=== PATIENT | female | born 1975 | race Caucasian/White ===

== ENCOUNTER 2018-06-25 22:59 | Inpatient (IN) | payer MEDICAID ==
[~2018-06-25] VITALS: Ht 175.3 cm; Wt 83.2 kg
--- NOTE | ~2018-06-25 | DS ---
PATIENT:FELICITAS VILLA :77 MEDICAL RECORD: [id number] DISCHARGE SUMMARY ADMISSION DATE: 06/25/18 DISCHARGE DATE: DATE OF ADMISSION: 06/25/2018 DATE OF DISCHARGE: 06/27/2018 ADMISSION DIAGNOSES: 1. Advanced maternal age. 2. Hypertension in , chronic. 3. Limited care in the third trimester. 4. Drug abuse/addiction in the third trimester of . DISCHARGE DIAGNOSES: 1. Advanced maternal age. 2. Hypertension in , chronic. 3. Limited care in the third trimester. 4. Drug abuse/addiction in the third trimester of . 5. Mother delivered at 39 weeks. PROCEDURE: Induction of labor with vaginal delivery. DELIVERY ATTENDANT: Dr. Napoles. DISCHARGING PHYSICIAN: Dr. Jacobo HISTORY OF PRESENT ILLNESS: See the H&P in the chart. SUMMARY OF HOSPITALIZATION: The patient is admitted to the hospital and underwent induction of labor with subsequent delivery. At the time of discharge, the patient is doing well with adequate pain control on NSAIDs and Tylenol. The patient will be discharged home on Mobic. Standard precautions as well as contraception counseling have been given. Follow up in 6 weeks with the delivering physician. TRANSINT:[id number] Voice Confirmation ID: [id number] DOCUMENT ID: [id number] ELIZABETH JACOBO MD at 1321 CC: [id number] DICTATION DATE: 06/27/18917 FILM DEVELOPER: 06/27/18 2340 ADM IN [facility] [address] [place] [address]
--- NOTE | ~2018-06-25 | MORECARE ---
CASE MANAGEMENT DISCHARGE SUMMARY PATIENT: FELICITAS VILLA UNIT: [id number] ADM DATE: 06/25/18 AGE: 43 : [birth year] SEX: F ROOM/BED: D.1276 AUTHOR: KARL,DOC PHYSICIAN: REFERRING PHYSICIAN: JACK OSUNA MD DATE OF SERVICE: 06/27/18 Discharge Plan Patient Name: FELICITAS VILLA Facility: [facility]:[place] : 1975 Planned Disposition: Anticipated Discharge Date: Discharge Date: Expected LOS: Initial Reviewer: [email or web address] Initial Review Date: 06/26/2018 Generated: 06/27/18 6:51 pm Comments DCP- Discharge Planning Updated by [email or web address]: Cady Santacruz on 06/27/18 4:[address] Patient Name: FELICITAS VILLA Admission Status: Elective Accout number: [id number] Admission Date: 06-25-2018 : 1975 Admission Diagnosis: Attending: JACK OSUNA Current LOS: 2 Anticipated DC Date: Planned Disposition: Primary Insurance: MEDICAID [place] PENDING Discharge Planning Comments: DC PLAN: Home w BABY. MOB is FELICITAS VILLA, address [address] [place] [address]. PHONE NUMBER [phone].. DC NEEDS: None TRANSPORTATION: FAMILY AND FRIENDS WIC: NO, STATES DOESN'T NEED INFORMATION. MEDICAID: IS IN THE PROCESS. CAR SEAT: NOT YET BUT GETTING ONE BEFORE DISCHARGE FEEDING PLAN: Plans to breast feed. BABY NAME: HASN'T NAMED YET FOB: States is not in the picture. MOB: WILL BE STAYING AT HOME WITH BABY ANIMATION PRODUCER: SAM CARE: NONE SUPPLIES: MOB states has diapers, bottles, and clothes. WATER SOURCE: city HEAT SOURCE: ELECTRIC AIR CONDITIONING: yes, central air. CM met with MOB regarding dc planning/needs. MOB to return to [facility]. States home environment is safe. She states in addition to herself, ONE other PERSON liveS in the home. HER 14 YEAR OLD. SHE STATES SHE HAS NO TRANSPORTATION RIGHT NOW BUT FAMILY AND FRIENDS WILL TRANSPORT HER TO APPOINTMENTS UNTIL SHE GETS A CAR. MOB states this is NOT her first child. Denies smokers, drug users, or etoh use in the home. MOB declined information on parenting classes and breast feeding information. Denies any discharge needs at this time. CM WILL CALL [place] [employer] DEPARTMENT AND SEE IF THEY HAVE A CARE SEAT TO DONATE. STATES DOESN'T HAVE MANY CLOTHES, I TALKED TO MARIALUISA PASCUAL AND SHE SAID THE [employer]IFT [employer]OP OR THE NURSERY [employer] HAS EXTRA CLOTHES OR BLANKETS TO DONATE. CM will continue to follow and assist as needed with dc planning/needs. Executive Chairman: Cady Santacruz Appended by Cady Santacruz on 06/27/2018 17:48 JANITORIAL ACCOUNT MANAGER: CM SPOKE WITH [place] PD AT [phone] AND THEY STATE IT WILL BE FRIDAY BEFORE MR. ELDER IS BACK IN THE OFFICE. HE TAKES CARE OF THE CAR SEATS TO DONATE. CM CAN CHECK BACK FRIDAY WITH [facility] IF PATIENT DOESN'T HAVE A CAR SEAT YET. Last DP export: 06/27/18 4:44 Patient Name: FELICITAS VILLA Page [id number] at 1751 All edits/amendments must be made on the electronic document DICTATION DATE: 06/27/181749 PEN OR PENCIL ASSEMBLY MACHINE OPERATOR: ELENO 06/27/181749 RPT#: [id number] DC DATE: STATUS: ADM IN [address] [place] [address] END OF REPORT
--- NOTE | ~2018-06-25 | MORECARE ---
CASE MANAGEMENT DISCHARGE SUMMARY PATIENT: FELICITAS VILLA UNIT: [id number] ADM DATE: 06/25/18 AGE: 43 : 77 SEX: F ROOM/BED: D.1276 AUTHOR: KARL,DOC PHYSICIAN: REFERRING PHYSICIAN: JACK OSUNA MD DATE OF SERVICE: 06/27/18 Discharge Plan Patient Name: FELICITAS VILLA Facility: [facility]:[place] : 1975 Planned Disposition: Anticipated Discharge Date: Discharge Date: Expected LOS: Initial Reviewer: [email or web address] Initial Review Date: 06/26/2018 Generated: 06/27/18 6:44 pm Comments DCP- Discharge Planning Updated by [email or web address]: Cady Santacruz on 06/27/18 4:[address] Patient Name: FELICITAS VILLA Admission Status: Elective Accout number: [id number] Admission Date: 06-25-2018 : 1975 Admission Diagnosis: Attending: JACK OSUNA Current LOS: 2 Anticipated DC Date: Planned Disposition: Primary Insurance: MEDICAID [place] PENDING Discharge Planning Comments: DC PLAN: Home w BABY. MOB is FELICITAS VILLA, address [address] [place] [address]. PHONE NUMBER [phone].. DC NEEDS: None TRANSPORTATION: FAMILY AND FRIENDS WIC: NO, STATES DOESN'T NEED INFORMATION. MEDICAID: IS IN THE PROCESS. CAR SEAT: NOT YET BUT GETTING ONE BEFORE DISCHARGE FEEDING PLAN: Plans to breast feed. BABY NAME: HASN'T NAMED YET FOB: States is not in the picture. MOB: WILL BE STAYING AT HOME WITH BABY ICT SUPPORT AND TEST ENGINEERS: SAM CARE: NONE SUPPLIES: MOB states has diapers, bottles, and clothes. WATER SOURCE: city HEAT SOURCE: ELECTRIC AIR CONDITIONING: yes, central air. CM met with MOB regarding dc planning/needs. MOB to return to [facility]. States home environment is safe. She states in addition to herself, ONE other PERSON liveS in the home. HER 14 YEAR OLD. SHE STATES SHE HAS NO TRANSPORTATION RIGHT NOW BUT FAMILY AND FRIENDS WILL TRANSPORT HER TO APPOINTMENTS UNTIL SHE GETS A CAR. MOB states this is NOT her first child. Denies smokers, drug users, or etoh use in the home. MOB declined information on parenting classes and breast feeding information. Denies any discharge needs at this time. CM WILL CALL [place] [employer] DEPARTMENT AND SEE IF THEY HAVE A CARE SEAT TO DONATE. STATES DOESN'T HAVE MANY CLOTHES, I TALKED TO MARIALUISA PASCUAL AND SHE SAID THE GIFT SHOP OR THE NURSERY SOM[facility]IMES HAS EXTRA CLOTHES OR BLANKETS TO DONATE. CM will continue to follow and assist as needed with dc planning/needs. General Contractor: Cady Santacruz Patient Name: FELICITAS VILLA Page [phone] at 1744 All edits/amendments must be made on the electronic document DICTATION DATE: 06/27/181743 RETORT SETTER: ELENO 06/27/181743 RPT#: [id number] DC DATE: STATUS: ADM IN [facility] [address] [place] [address] END OF REPORT
[2018-06-26 00:26] LABS: APPEARANCE CLEAR (CLEAR); BILIRUBIN NEGATIVE (NEGATIVE); COLOR YELLOW (YELLOW); GLUCOSE NEGATIVE (NEGATIVE); KETONE NEGATIVE (NEGATIVE); NITRITE NEGATIVE (NEGATIVE); PROTEIN NEGATIVE (NEGATIVE); SPECIFIC GRAVITY 1.015 (1.005-1.020); UROBILINOGEN NORMAL (NORMAL)
[2018-06-26 01:22] LABS: HEMATOCRIT 34.8 % (36.0-48.0); HEMOGLOBIN 11.7 g/dL (12-16); MCH 27.6 pg (26.0-34.0); MCHC 33.6 g/dL (31.0-37.0); MCV 82.1 fL (80.0-100.0); MEAN PLATELET VOLUME 11.1 fL (7.4-10.4); RBC 4.24 10x6/uL (4.00-5.40); RDW 14.2 % (11.5-14.5); WBC 11.1 10x3/uL (4.8-10.8)
[2018-06-26 01:31] LABS: UDS - AMPHET NEGATIVE QUAL (NEGATIVE); UDS - BARB NEGATIVE QUAL (NEGATIVE); UDS - BENZO NEGATIVE QUAL (NEGATIVE); UDS - COCAINE NEGATIVE QUAL (NEGATIVE); UDS - OPIATE NEGATIVE QUAL (NEGATIVE); UDS - PCP NEGATIVE QUAL (NEGATIVE); UDS - THC NEGATIVE QUAL (NEGATIVE)
[2018-06-26 01:46] VITALS: BP 133/89; Ht 175.3 cm; Wt 83.2 kg
[2018-06-26 01:52] LABS: HIV 1 & 2- RAPID SCREEN NEGATIVE (NEGATIVE)
[2018-06-26 02:18] LABS: ALBUMIN 2.2 g/dL (3.4-5.0); ALKALINE PHOSPHATASE 308 U/L (46-116); ALT (SGPT) 8 U/L (10-68); BILIRUBIN - TOTAL 0.14 mg/dL (0.2-1.3); CALC OSMOLALITY 271 mosm/kg (275-300); CALCIUM 8.4 mg/dL (8.5-10.1); CARBON DIOXIDE 20.7 mmol/L (21.0-32.0); CHLORIDE - SERUM 103 mmol/L (98-107); CREATININE - SERUM 0.8 mg/dL (0.6-1.3); GLUCOSE 90 mg/dL (74-106); LDH 153 U/L (81-234); POTASSIUM - SERUM 3.2 mmol/L (3.5-5.1); PROTEIN - SERUM 6.8 g/dL (6.4-8.2); SODIUM 138 mmol/L (136-145); UREA NITROGEN 2 mg/dL (7-18); URIC ACID 5.6 mg/dL (2.6-7.2); eGFR NON AFRICAN AMERICAN 83 mL/min (90-120)
[2018-06-26 06:59] LABS: CREATININE - URINE 53.5 mg/dL (30-125); PRO/CRE RATIO URINE 0.1 mg/g; PROTEIN - URINE 7.9 mg/dL (0.0-11.9)
[2018-06-26 21:00] VITALS: BP 142/84
[2018-06-27 06:13] LABS: RAPID PLASMA REAGIN Non Reactive (Non Reactive)
[2018-06-27 07:10] LABS: BASOPHILS 0.2 % (0-2); EOSINOPHILS 1.8 % (0-7); HEMATOCRIT 31.5 % (36.0-48.0); HEMOGLOBIN 10.2 g/dL (12-16); IMMATURE GRANULOCYTES 0.5 % (0-5); LYMPHOCYTES 27.8 % (15-50); MCH 26.7 pg (26.0-34.0); MCHC 32.4 g/dL (31.0-37.0); MCV 82.5 fL (80.0-100.0); MEAN PLATELET VOLUME 11.1 fL (7.4-10.4); MONOCYTES 9.4 % (2-11); NEUTROPHILS 60.3 % (40-80); PLATELET COUNT 269 10x3/uL (130-400); RBC 3.82 10x6/uL (4.00-5.40); RDW 14.4 % (11.5-14.5); WBC 12.8 10x3/uL (4.8-10.8)
[2018-06-27 07:31] LABS: ALBUMIN 1.8 g/dL (3.4-5.0); ANION GAP 11.4 mmol/L (8-16); CALCIUM 8.3 mg/dL (8.5-10.1); CARBON DIOXIDE 23.1 mmol/L (21.0-32.0); POTASSIUM - SERUM 3.5 mmol/L (3.5-5.1); PROTEIN - SERUM 5.5 g/dL (6.4-8.2)
[2018-06-27 07:32] LABS: BILIRUBIN - TOTAL 0.1 mg/dL (0.2-1.3)
[2018-06-27 08:13] VITALS: BP 159/90
[2018-06-27 10:12] LABS: RUBELLA IGG 4.44 index (Immune >0.99)
[2018-06-27 11:10] LABS: HEPATITIS C ANTIBODY <0.1 S/CO RAT (0.0-0.9)
[2018-06-27] MEDS ORDERED: MOBIC7.5 MG PO (11:54)
[2018-06-27 13:14] VITALS: BP 139/86
[2018-06-27 20:27] VITALS: BP 161/91
[2018-06-27 22:32] VITALS: BP 138/89
[2018-06-28 08:05] VITALS: BP 142/86
== END 2018-06-28 13:54 | disposition home or self-care (01) | DRG 807 ==
LOC: D.LD 22:59 → D.LDO 22:59 → D.LD 23:28
PROVIDERS: Obstetrics & Gynecology
PROC: 3E0P7VZ Introduction of Hormone into Female Reproductive, Via Natural or Artificial Opening (ICD-10-PCS; principal; 2018-06-26)
PROC: 10E0XZZ Delivery of Products of Conception, External Approach (ICD-10-PCS; 2018-06-26)
DX: O16.4 Unspecified maternal hypertension, complicating childbirth (principal); Z37.0 Single live birth; Z3A.39 39 weeks gestation of pregnancy; O75.89 Other specified complications of labor and delivery; F19.10 Other psychoactive substance abuse, uncomplicated